=== PATIENT | male | born 1955 | race Caucasian/White ===

== ENCOUNTER 2016-12-05 15:35 | Emergency (ER) | payer BC ==
[~2016-12-05 15:35] MED LIST: ALBUTEROL17 GM INH; ALLEGRA PO; ASPIRINEC PO; BISOPROLOL HCTZ; CECLOR PO; CLOPIDOGREL75 MG; CYMBALTA; EC-NAPROSYN500 MG PO; FISH OIL 1,0001 CAP PO; FLEXERIL10 MG; LIPITOR20 MG; MULTI-VITAMIN1 TAB PO; NAPROXEN PO; NEURONTIN; NORCO 10-325 TA1 TAB; PEPCID40 MG; PLAVIX PO; PRAVACHOL PO; PREDNISONE PO; TRAZODONE; VASOTEC PO; VICOPROFEN 200-1 TAB PO; XALATAN OP
== END 2016-12-05 16:14 | disposition home or self-care (01) ==
LOC: SED 15:35
DX: S39.012A Strain of muscle, fascia and tendon of lower back, initial encounter (principal); I10 Essential (primary) hypertension; K21.9 Gastro-esophageal reflux disease without esophagitis; F17.200 Nicotine dependence, unspecified, uncomplicated; I25.810 Atherosclerosis of coronary artery bypass graft(s) without angina pectoris; Z88.2 Allergy status to sulfonamides; Z79.899 Other long term (current) drug therapy; Z95.828 Presence of other vascular implants and grafts; X50.9XXA Other and unspecified overexertion or strenuous movements or postures, initial encounter; Y92.009 Unspecified place in unspecified non-institutional (private) residence as the place of occurrence of the external cause
CPT/HCPCS: 96372; 99283; J1100; J1885